=== PATIENT | male | born 1975 | race Caucasian/White ===

== ENCOUNTER 2016-07-07 11:30 | Emergency (ER) | payer BC ==
[~2016-07-07] VITALS: Ht 175.3 cm; Wt 63.5 kg
--- NOTE | 2016-07-07 11:47 | NUR ---
PT IS IN ROOM #1B. DR PARRA EVALUATED THE PT.
--- NOTE | 2016-07-07 12:14 | NUR ---
PT WAS RE-EVALUATED BY DR PARRA. PT WAS D/C TO HOME. D/C INSTRUCTIONS GIVEN TO THE PT. GAIT IS STABLE. NO S/S OF DISTRESS AT THE TIME OF DISCHARGE FROM ER.
[2016-07-07 12:15] VITALS: BP 132/78
== END 2016-07-07 12:16 | disposition home or self-care (01) ==
LOC: ER 11:30
DX: G45.9 Transient cerebral ischemic attack, unspecified (principal)
CPT/HCPCS: 93005; A4663